=== PATIENT | female | born 1950 | race Caucasian/White ===

== ENCOUNTER → 2023-02-07 | Outpatient (CLI) | payer MEDICARE ==
--- NOTE | 2023-02-07 17:48 | CA ---
Transthoracic Echo Report Name: Una Chandra Age: 72 Gender: F : 1950 Exam Date: 02/07/2023 12:38 Exam Location: [facility] Ht (in): 60 Wt (lb): 140 Ordering Physician: Geraldo Ayala MD Attending/Referring Phys: Technical Support Analyst Janee Hopper RDCS Procedure CPT: Indications: MURMUR R01.1 Cardiac Hx: Technical Quality: Fair Contrast 1: Total Dose (mL): Contrast 2: Total Dose (mL): MEASUREMENTS (Male / Female) Normal Values 2D ECHO LV Diastolic Diameter PLAX 4.6 cm 4.2 - 5.9 / 3.9 - 5.3 cm LV Systolic Diameter PLAX 2.7 cm IVS Diastolic Thickness 1.1 cm 0.6 - 1.0 / 0.6 - 0.9 cm LVPW Diastolic Thickness 1.2 cm 0.6 - 1.0 / 0.6 - 0.9 cm LV Relative Wall Thickness 0.5 RV Internal Dim ED PLAX 2.6 cm LA Systolic Diameter LX 3.8 cm 3.0 - 4.0 / 2.7 - 3.8 cm LA Volume 32.3 cm??? 18 - 58 / 22 - 52 cm??? M-MODE Aortic Root Diameter MM 3.1 cm MV E Point Septal Separation 2.5 cm AV Cusp Separation MM 1.9 cm DOPPLER AV Peak Velocity 171.6 cm/s AV Peak Gradient 11.8 mmHg AV Mean Velocity 113.5 cm/s AV Mean Gradient 6.1 mmHg AV Velocity Time Integral 38.7 cm MV Area PHT 2.3 cm??? Mitral E Point Velocity 61.4 cm/s Mitral A Point Velocity 112.1 cm/s Mitral E to A Ratio 0.5 MV Deceleration Time 324.8 ms MV E' Velocity 6.9 cm/s Mitral E to MV E' Ratio 8.9 FINDINGS Left Ventricle Left ventricular ejection fraction is estimated at 55-60 %. Mildly increased septal wall thickness. Mildly increased posterior wall thickness. Left ventricular cavity size normal. Normal left ventricular wall motion. Right Ventricle Normal right ventricular size and function. No TRunable to estimate the right ventricular systolic pressure. Right Atrium Normal right atrial size. Left Atrium Normal left atrial size. Mitral Valve Mitral valve thickened. No mitral stenosis, regurgitation or prolapse. Aortic Valve Trileaflet aortic valve. Aortic valve sclerosis. No aortic valve stenosis or regurgitation. Tricuspid Valve Structurally normal tricuspid valve. No tricuspid regurgitation. Pulmonic Valve Structurally normal pulmonic valve. No pulmonic regurgitation. Pericardium Normal pericardium. No pericardial effusion. Aorta Normal size aortic root and proximal ascending aorta. CONCLUSIONS Normal LV systolic function Previewed by: Dr. Erickson Lanier MD (Electronically Signed) Final Date: 07 February 2023 17:47
== END | disposition home or self-care (01) ==
LOC: RADECHMAIN 12:14
PROVIDERS: ATTEND Internal Medicine
DX: R01.1 Cardiac murmur, unspecified (principal)
CPT/HCPCS: 93306